=== PATIENT | male | born 2000 | race Caucasian/White ===

== ENCOUNTER 2023-06-05 22:52 | Emergency (ER) | payer OTHER, SELFPAY ==
[2023-06-05 23:07] VITALS: BP 138/76; PULSE 94; RESP 16; TEMP 37.4; O2SAT 97
--- NOTE | 2023-06-06 00:42 | ED_ITS ---
HPI - Skin/Abscess/Foreign Bdy General Chief complaint: Skin/Abscess/Foreign Body Stated complaint: Laceration Time Seen by Provider: 06/06/23 00:36 Source: patient Mode of arrival: walk-in Limitations: no limitations History of Present Illness HPI narrative: laceration right forearm at work. [employer]. no associated numbness or weakness. No other complaint of injury. Last tetanus 2014 complaint: Reports laceration Related Data Home Medications Medication Instructions Recorded Confirmed No Known Home Medications 06/05/23 06/05/23 Allergies Allergy/AdvReac Type Severity Reaction Status Date / Time No Known Drug Allergies Allergy Verified 06/05/23 23:09 Review of Systems ROS Status of ROS 10 or more systems reviewed and unremarkable except as noted in history and below PFSH PFS Social History Smoking status: Never smoker Exam Constitutional Vital Signs, click to edit/add: Last Vital Signs Temp 99.4 F 06/05/23 23:07 Pulse 94 H 06/05/23 23:07 Resp 16 06/05/23 23:07 BP 138/76 06/05/23 23:07 Pulse Ox 97 06/05/23 23:07 O2 Del Method Room Air 06/05/23 23:07 Common normals: no apparent distress, average body habitus, oriented x3, no limitations and healthy appearing Eye Common normals: EOMs intact bilaterally and conjunctivae normal Respiratory Common normals: normal respiratory effort, no retractions and no use of accessory muscles GI Common normals: Normal to inspection, nondistended, normoactive bowel sounds present and soft to palpation Extremity Other: superficial lac right FA Neuro Common normals: oriented x3, CN's II-XII intact bilaterally, moves all extremities and no focal motor deficits Psych Appearance: grossly normal Course Vital Signs Vital signs: Vital Signs Temperature 99.4 F 06/05/23 23:07 Pulse Rate 94 H 06/05/23 23:07 Respiratory Rate 16 06/05/23 23:07 Blood Pressure 138/76 06/05/23 23:07 Pulse Oximetry 97 06/05/23 23:07 Oxygen Delivery Method Room Air 06/05/23 23:07 Temperature 99.4 F 06/05/23 23:07 Pulse Rate 94 H 06/05/23 23:07 Respiratory Rate 16 06/05/23 23:07 Blood Pressure 138/76 11/28/23 23:07 Pulse Oximetry 97 06/05/23 23:07 Oxygen Delivery Method Room Air 06/05/23 23:07 MDM - Skin/Abscess/Foreign Bdy MDM Narrative Medical decision making narrative: presents with minor lac right FA that occurred at work. repaired without incident. Discharged home to follow up with workers comp Discharge Plan Discharge Chief Complaint: Skin/Abscess/Foreign Body Clinical Impression: Laceration of forearm, right Patient Disposition: Home, Self-Care Prescriptions / Home Meds: No Action No Known Home Medications Instructions: Laceration (ED) Additional Instructions: have wound rechecked in 2-3 days and stitches removed in 10 Stand Alone Forms: Portal Instructions Referrals: Physician,Non-Staff, MD [Primary Care Provider] - 1 week Procedures ED Procedure Instructions Procedures Procedures: superficial lac right FA 2.5cm 1% lido as a local. site cleaned with betadine , rinsed with saline and closed with #3 4.0 nylon stitches
[2023-06-06] MEDS: LIDOCAINE HCL 1% 100 MG/10 ML MDV INJ (00:51)
[2023-06-06] MEDS: ADACEL DIPH,PERTUSS(ACELL),TET VAC/PF 0.5 ML ADULT SYRINGE IM (00:51)
== END 2023-06-06 02:35 | disposition home or self-care (01) ==
PROVIDERS: Emergency Provider Internal Medicine
DX: S51.811A Laceration without foreign body of right forearm, initial encounter (principal); Z23 Encounter for immunization; W26.8XXA Contact with other sharp object(s), not elsewhere classified, initial encounter
CPT/HCPCS: 12001; 90471; 90715; 99283